=== PATIENT | female | born 1970 | race Caucasian/White ===

== ENCOUNTER 2020-05-27 11:50 | Outpatient (REF) | payer OTHER, SELFPAY ==
[2020-05-27 13:53] LABS: MANUAL DIFF FLAG NO
[2020-05-27 14:01] LABS: Basophils Absolute Auto 0.1 X10*3/uL (0.0-0.2); Basophils Percent Auto 0.7 % (0-2); Eosinophils Absolute Auto 0.1 X10*3/uL (0.0-0.4); Eosinophils Percent Auto 1.3 % (0-4); Hematocrit 38.2 % (37-47); Imm Gran Abs Auto 0.07 X10*3/uL (0.00-0.03); Imm Gran Pct Auto 0.7 % (0.0-0.4); Lymphocytes Percent Auto 28.8 % (20-40); Mean Corpuscular HGB Conc 31.4 g/dl (31.0-35.0); Mean Corpuscular Hemoglobin 25.9 pg (27.0-33.0); Mean Corpuscular Volume 82.5 fL (80-98); Mean Platelet Volume 11.1 fL (9.4-12.3); Monocytes Absolute Auto 0.7 X10*3/uL (0.1-1.2); Neutrophils Absolute Auto 6.3 X10*3/uL (2.0-8.3); Neutrophils Percent Auto 61.5 % (45-73); Platelet Count 336 X10*3/uL (160-400); Red Blood Count 4.63 X10*6/uL (4.20-5.50); Red Cell Distribution Width 14.7 % (11.0-16.0); White Blood Count 10.3 X10*3/uL (4.8-10.8)
[2020-05-27 14:34] LABS: Blood Urea Nitrogen 10 mg/dL (9-16); Estimated Glomerular Filt Rate > 60; Iron 201 mcg/dL (30-160); Percent Iron Saturation 45 % (15-50); Total Iron Binding Capacity 444 mcg/dL (228-428); Unsaturated Iron Binding 243 ug/dL
[2020-05-27 14:43] LABS: Ferritin 981 ng/mL (10-250)
== END 2020-05-27 11:51 | disposition home or self-care (01) ==
LOC: HO.10HDL 11:50
PROVIDERS: Visit Provider Internal Medicine
DX: K56.699 Other intestinal obstruction unspecified as to partial versus complete obstruction (principal); D50.9 Iron deficiency anemia, unspecified
CPT/HCPCS: 36415; 82565; 82728; 83540; 84520; 85025

== ENCOUNTER 2020-05-30 08:28 | Outpatient (REF) | payer OTHER, SELFPAY ==
--- NOTE | 2020-05-30 | CT_ITS ---
EXAMINATION: CT ABDOMEN AND PELVIS WITH CONTRAST CLINICAL INFORMATION: Evaluate for duodenal ulcer/stricture. Iron deficiency. COMPARISON: None TECHNIQUE: Multidetector volumetric images were obtained from the superior aspect of the liver through the pubic symphysis following administration 85 mL of Omnipaque 350 intravenous contrast. Sagittal and coronal reformatted images were obtained on the technologist's workstation. Oral contrast: Yes This CT examination was performed using dose optimization techniques as appropriate, variously including the following: *Automated exposure control *Adjustment of mA and/or kV according to patient size (this includes techniques or standardized protocols for targeted exams where dose is matched to indication/reason for exam; i.e. extremities or head) *Use of iterative reconstruction technique DLP: 529 mGy-cm FINDINGS: LUNG BASES: The visualized lung bases are unremarkable. LIVER, GALLBLADDER, AND BILIARY TREE: The liver is low in attenuation suggestive of fatty infiltration. No focal hepatic lesion or biliary ductal dilatation is present. The gallbladder has been removed. PANCREAS: Unremarkable. SPLEEN: Unremarkable. ADRENAL GLANDS: Unremarkable. KIDNEYS AND URETERS: The kidneys are normal in size, shape, and attenuation. No hydronephrosis, hydroureter, or calculi seen. No perinephric stranding. BLADDER: Unremarkable. GASTROINTESTINAL TRACT: There is a duodenal diverticulum adjacent to the head of the pancreas. No ulcer or definite stricture is seen. There are 2 areas of short segment caliber change in the small bowel, one just deep to the umbilicus sagittal image 16, coronal image 63 and axial image 50 and 1 in the left lower quadrant coronal image 27, sagittal image 54 and axial image 67 series 3. These areas may just correspond to contraction/peristalsis. Small and large bowel is otherwise unremarkable. The appendix is unremarkable. The stomach is unremarkable. ABDOMINAL WALL: There is a small umbilical hernia containing fat. LYMPH NODES: There is small bowel mesentery lymphadenopathy. Largest lymph nodes are slightly enlarged. Largest lymph node is in the right mid abdomen and measures 0.9 x 1.5 cm. VASCULAR: Unremarkable. PELVIC VISCERA: There is an IUD in the uterus in satisfactory position. There is a 2.5 x 2.8 x 4.2 cm probable pedunculated uterine fibroid adjacent to the left body of the uterus. Adnexa are unremarkable. OSSEOUS STRUCTURES: There are degenerative changes of the spine and mild curvature of the lumbar spine to the left. There is a small 5 mm iliac crest near the sacroiliac joint axial image 62 series 3. This may represent a bone island.. CT/CT abdomen pelvis w con IMPRESSION: Fatty liver. Duodenal diverticulum adjacent to the head of the pancreas. Enlarged small bowel mesentery lymph nodes. No ulcer or definite stricture is seen. There are 2 areas of luminal narrowing of the small bowel as described above that may be due to contraction/peristalsis. IUD in the uterus and probable left-sided pedunculated uterine fibroid.
[2020-05-30] MEDS: iohexoL 350 MG/ML 100 ML INFUS..BTL 85 ML IV (11:05)
[2020-05-30] MEDS: Diatrizoate Meglumine, Sodium 30 ML SOLUTION PO (11:06)
== END 2020-05-30 08:29 | disposition home or self-care (01) ==
LOC: HO.CT 08:28
PROVIDERS: Visit Provider Internal Medicine
DX: K28.9 Gastrojejunal ulcer, unspecified as acute or chronic, without hemorrhage or perforation (principal); D50.0 Iron deficiency anemia secondary to blood loss (chronic); K56.699 Other intestinal obstruction unspecified as to partial versus complete obstruction
CPT/HCPCS: 74177; Q9967

== ENCOUNTER 2020-06-07 08:44 | Outpatient (REF) | payer OTHER, SELFPAY ==
--- NOTE | 2020-06-07 | FL_ITS ---
EXAMINATION: FL SMALL BOWEL SERIES CLINICAL INFORMATION: Evaluate for ulcer or stricture COMPARISON: Previous CT of the abdomen and pelvis May 2020 TECHNIQUE: Following a supervisor assembly stock image of the abdomen, contrast was administered orally, and interval abdominal radiographs were performed to assess for contrast progression through the small bowel. Following contrast transit through the small bowel and into the colon, the patient was placed on the fluoroscopy table, and multiple spot images were obtained. FINDINGS: Publicity Manager image of the abdomen demonstrates a normal bowel gas pattern. There is slightly delayed transit time of contrast material through the small bowel, with contrast present in the colon by 2 hours and 35 minutes small bowel loops are of normal caliber throughout the abdomen and pelvis. The jejunal and ileal fold patterns are normal, without evidence of abnormal thickening. No fixed regions of luminal narrowing are seen to suggest stricturing. The terminal ileum demonstrates a normal appearance. There is a duodenal diverticulum arising from the second portion of the duodenum. FLUOROSCOPY TIME: 0.1 minutes DOSE AREA PRODUCT: 2.6 steele per centimeter squared. 15 overhead and 3 saved fluoroscopic images FL/FL small bowel follow through IMPRESSION: Duodenal diverticulum arising from the second portion of the duodenum otherwise unremarkable exam.
--- NOTE | 2020-06-07 08:53 | FL_ITS ---
EXAMINATION: XR FLUOROSCOPY UPPER GI WITH AIR CLINICAL INFORMATION: Gastrojejunal jejunal ulcer. Iron deficiency anemia. COMPARISON: Previous CT of the abdomen and pelvis 05/30/2020 TECHNIQUE: Upper GI was performed using thin and thick barium and effervescent granules. FINDINGS: Esophageal motility is normal. There is mild gastroesophageal reflux. No hernia, mass or stricture is seen. The stomach is normal-appearing. No fold thickening, mass, ulcer or stricture is seen. There is a duodenal diverticulum arising from the second portion of the duodenum. No duodenal ulcer is seen. FLUOROSCOPY TIME: 1 minute DOSE AREA PRODUCT: 9.8 Bower per centimeter squared. 22 saved fluoroscopic images. FL/FL upper GI w air IMPRESSION: Mild gastroesophageal reflux. Duodenal diverticulum arising from the second portion of the duodenum. No ulcer seen.
== END 2020-06-07 08:45 | disposition home or self-care (01) ==
LOC: HO.XRAY 08:44
PROVIDERS: PCP Internal Medicine; Visit Provider Internal Medicine
DX: K28.9 Gastrojejunal ulcer, unspecified as acute or chronic, without hemorrhage or perforation (principal); D50.0 Iron deficiency anemia secondary to blood loss (chronic); K56.699 Other intestinal obstruction unspecified as to partial versus complete obstruction
CPT/HCPCS: 74246; 74250

== ENCOUNTER → 2020-08-04 08:27 | Outpatient (BNVA) | payer OTHER, SELFPAY | PROVIDERS: PCP Internal Medicine; Visit Provider Internal Medicine Gastroenterology | DX: K29.70 Gastritis, unspecified, without bleeding (principal); K52.9 Noninfective gastroenteritis and colitis, unspecified | CPT/HCPCS: 91110 ==

== ENCOUNTER 2020-10-20 10:39 | Outpatient (REF) | payer OTHER, SELFPAY ==
[2020-10-20 13:59] LABS: MANUAL DIFF FLAG NO
[2020-10-20 14:04] LABS: Basophils Absolute Auto 0.1 X10*3/uL (0.0-0.2); Basophils Percent Auto 0.7 % (0-2); Eosinophils Absolute Auto 0.1 X10*3/uL (0.0-0.4); Eosinophils Percent Auto 1.8 % (0-4); Hematocrit 41.6 % (37-47); Hemoglobin 13.9 g/dl (12.0-16.0); Imm Gran Abs Auto 0.05 X10*3/uL (0.00-0.03); Imm Gran Pct Auto 0.7 % (0.0-0.4); Lymphocytes Absolute Auto 2.1 X10*3/uL (1.2-4.9); Lymphocytes Percent Auto 28.6 % (20-40); Mean Corpuscular HGB Conc 33.4 g/dl (31.0-35.0); Mean Corpuscular Hemoglobin 28.4 pg (27.0-33.0); Mean Corpuscular Volume 84.9 fL (80-98); Mean Platelet Volume 11.8 fL (9.4-12.3); Monocytes Absolute Auto 0.5 X10*3/uL (0.1-1.2); Neutrophils Absolute Auto 4.5 X10*3/uL (2.0-8.3); Neutrophils Percent Auto 61.2 % (45-73); Platelet Count 226 X10*3/uL (160-400); Red Cell Distribution Width 14.7 % (11.0-16.0); White Blood Count 7.3 X10*3/uL (4.8-10.8)
[2020-10-20 14:35] LABS: Iron 97 mcg/dL (30-160); Percent Iron Saturation 31 % (15-50); Total Iron Binding Capacity 309 mcg/dL (228-428); Unsaturated Iron Binding 212 ug/dL
[2020-10-20 15:04] LABS: Ferritin 111 ng/mL (10-250)
== END 2020-10-20 10:40 | disposition home or self-care (01) ==
LOC: HO.HMGCLDS 10:39
PROVIDERS: PCP Internal Medicine; Visit Provider Internal Medicine
DX: D50.9 Iron deficiency anemia, unspecified (principal)
CPT/HCPCS: 36415; 82728; 83540; 85025

== ENCOUNTER 2022-08-06 10:34 | Outpatient (REF) | payer OTHER, SELFPAY ==
[2022-08-06 14:03] LABS: MANUAL DIFF FLAG NO
[2022-08-06 14:10] LABS: Basophils Absolute Auto 0.1 X10*3/uL (0.0-0.2); Eosinophils Absolute Auto 0.1 X10*3/uL (0.0-0.4); Eosinophils Percent Auto 1.9 % (0-4); Imm Gran Abs Auto 0.03 X10*3/uL (0.00-0.03); Imm Gran Pct Auto 0.5 % (0.0-0.4); Lymphocytes Absolute Auto 2.2 X10*3/uL (1.2-4.9); Lymphocytes Percent Auto 35.2 % (20-40); Mean Corpuscular HGB Conc 31.7 g/dl (31.0-35.0); Mean Corpuscular Hemoglobin 25.7 pg (27.0-33.0); Mean Corpuscular Volume 81.2 fL (80.0-98.0); Mean Platelet Volume 10.9 fL (9.4-12.3); Monocytes Absolute Auto 0.5 X10*3/uL (0.1-1.2); Monocytes Percent Auto 8.2 % (2-11); Neutrophils Absolute Auto 3.3 x10*3/uL (2.0-8.3); Neutrophils Percent Auto 53.2 % (45-73); Platelet Count 294 X10*3/uL (160-400); Red Blood Count 5.05 X10*6/uL (4.20-5.50); Red Cell Distribution Width 22.3 % (11.0-16.0); White Blood Count 6.2 X10*3/uL (4.8-10.8)
[2022-08-06 14:52] LABS: Alanine Aminotransferase 21 U/L (0-31); Albumin Level 4.2 g/dL (3.5-5.0); Alkaline Phosphatase 67 U/L (39-117); Anion Gap 13 (12-20); Aspartate Amino Transferase 19 U/L (5-31); Bilirubin Total 0.5 mg/dL (0.0-1.0); Blood Urea Nitrogen 9 mg/dL (9-16); Calcium 9.3 mg/dL (8.4-10.2); Carbon Dioxide 26 mmol/L (22-29); Chloride 103 mmol/L (96-108); Estimated Glomerular Filt Rate > 60; Glucose Random 163 mg/dL (60-115); Sodium 138 mmol/L (135-145); Total Protein 6.5 g/dL (6.5-8.0)
[2022-08-08 12:09] LABS: NT-proBNP 40 pg/mL
== END 2022-08-06 10:35 | disposition home or self-care (01) ==
LOC: HO.MANLDS 10:34
PROVIDERS: Visit Provider Physician Assistant
DX: R07.89 Other chest pain (principal)
CPT/HCPCS: 36415; 80053; 83880; 85025